=== PATIENT | female | born 1985 | race Two or more races ===

== ENCOUNTER 2018-01-20 12:33 | Inpatient (IN) | payer OTHER ==
[2018-01-20] MEDS ORDERED: ACETAMINOPHEN 1000 MG/100 ML VIAL (NON FORMULARY) IVPB ONE (13:34)
[2018-01-20] MEDS ORDERED: ACETAMINOPHEN INJECTION 100 ML IVPB ONE (13:37)
--- NOTE | 2018-01-20 14:02 | PDOC ---
History of Present Illness <Ethan Canas - Last Filed: 01/20/18 17:44> - History of Present Illness Initial Comments: 01/20/18 14:34 "The patient is a 32 year old female, with a significant past medical history of migraines, rheumatoid arthritis, fibromyalgia, liposuction on January 04, who presents to the emergency department complaining of diffuse abdominal pain for approx 16 days. The patient reports diffuse abdominal pain since her liposuction surgery on January 04. She states that the pain is in the abdominal wall. She also reports that the skin feels very swollen The patient reports she notified her surgeon Dr. Chamberlain 2 days after the surgery and was seen in the office four days. At that time they found a hematoma that was drained. Pt was also given a course of Levaquin, which she completed. Pt denies any F/C. Denies bleeding or drainage from any of the surgical sites. The patient reports taking 800 mg of Motrin for the abdominal pain with minimal relief. She denies recent fevers, chills, headache or dizziness. She denies recent nausea, vomit, or diarrhea. She denies recent dysuria, frequency, urgency or hematuria. She denies recent chest pain or shortness of breath. Allergies: Multiple allergies. See nursing notes. Past surgical history: . Liposuction 360 surgery on 01/04/18. Dilation and curettage. Social history: Nonsmoker. Primary Care Physician: Dr. Kuo Surgeon: Dr. Chamberlain " <Robert Arias - Last Filed: 01/20/18 18:13> - General Chief Complaint: Lightheaded Stated Complaint: DIZZINESS Time Seen by Provider: 01/20/18 12:44 Past History <Ethan Canas - Last Filed: 01/20/18 17:44> - Past Medical History COPD: No Other medical history: R.A , FIBROMYALGIA, MIGRAINES - Surgical History Abdominal Surgery: Yes (LIPO SUCTION) - Suicide/Smoking/Psychosocial Hx Smoking History: Never smoked Information on smoking cessation initiated: No Hx Alcohol Use: No Drug/Substance Use Hx: No Substance Use Type: None <Robert Arias - Last Filed: 01/20/18 18:13> - Past Medical History Allergies/Adverse Reactions: Allergies Allergy/AdvReac Type Severity Reaction Status Date / Time clindamycin Allergy Verified 01/20/18 12:59 codeine Allergy Verified 01/20/18 12:59 egg Allergy Verified 01/20/18 12:59 oxycodone Allergy Verified 01/20/18 12:59 Penicillins Allergy Verified 01/20/18 12:59 pineapple Allergy Verified 01/20/18 12:59 vancomycin Allergy Verified 01/20/18 12:59 Home Medications: Ambulatory Orders NK [No Known Home Medication] 01/20/18 Review of Systems - Review of Systems Comments:: 01/20/18 14:41 "GENERAL/CONSTITUTIONAL: No fever or chills. No weakness. HEAD, EYES, EARS, NOSE AND THROAT: No change in vision. No ear pain or discharge. No sore throat. CARDIOVASCULAR: No chest pain or shortness of breath. RESPIRATORY: No cough, wheezing, or hemoptysis. GASTROINTESTINAL: (+) Abdominal pain and swelling. (+) Diffuse abdominal pain. No nausea, vomiting, diarrhea. GENITOURINARY: No dysuria, frequency, or change in urination. MUSCULOSKELETAL: No joint or muscle swelling or pain. No neck or back pain. SKIN: No rash NEUROLOGIC: No headache, loss of consciousness, or change in strength/sensation. ENDOCRINE: No increased thirst. No abnormal weight change. HEMATOLOGIC/LYMPHATIC: No anemia, easy bleeding, or history of blood clots. ALLERGIC/IMMUNOLOGIC: No hives or skin allergy. " <Robert Arias - Last Filed: 01/20/18 18:13> *Physical Exam - Vital Signs Last Vital Signs Temp Pulse Resp BP Pulse Ox 98.7 F 85 18 138/85 99 01/20/18 12:38 01/20/18 12:38 01/20/18 12:38 01/20/18 12:38 01/20/18 13:03 <Ethan Canas - Last Filed: 01/20/18 17:44> - Vital Signs Last Vital Signs Temp Pulse Resp BP Pulse Ox 98.7 F 85 18 138/85 99 01/20/18 12:38 01/20/18 12:38 01/20/18 12:38 01/20/18 12:38 01/20/18 13:03 - Physical Exam Comments: 01/20/18 14:09 "GENERAL: Awake, alert, and fully oriented, in no acute distress HEAD: No signs of trauma EYES: PERRLA, EOMI, sclera anicteric, conjunctiva clear ENT: Auricles normal inspection, hearing grossly normal, nares patent, oropharynx clear without exudates. Moist mucosa NECK: Nontender, no stepoffs, Normal ROM, supple, no lymphadenopathy, JVD, or masses LUNGS: Breath sounds equal, clear to auscultation bilaterally. No wheezes, and no crackles HEART: Regular rate and rhythm, normal S1 and S2, no murmurs, rubs or gallops ABDOMEN: +induration and tenderness along entire anterior abdominal wall, no drainage, no erythema, no abdominal distention EXTREMITIES: Normal range of motion, no edema. No clubbing or cyanosis. No cords, erythema, or tenderness NEUROLOGICAL: Cranial nerves II through XII intact. 5/5 strength and sensation in all extremities, Normal speech, normal gait, normal cerebellar function SKIN: Warm, Dry, normal turgor, no rashes or lesions noted. " <Ou,Robert - Last Filed: 01/20/18 18:13> ED Treatment Course - LABORATORY CBC & Chemistry Diagram: 01/20/18 13:50 01/20/18 13:50 - ADDITIONAL ORDERS Additional order review: Laboratory Results 01/20/18 13:50 PT with INR 12.20 H INR 1.08 PTT (Actin FS) 28.7 01/20/18 13:50 RBC 4.66 MCV 81.2 MCHC 32.4 RDW 14.6 MPV 7.2 L Neutrophils % 62.2 Lymphocytes % 29.3 Monocytes % 7.4 Eosinophils % 0.4 Basophils % 0.7 - RADIOLOGY Radiograph Interpretation: 01/20/18 17:12 EXAM#: TYPE/EXAM: RESULT: [id number] CT/ABDOMEN PELVIS CT WITH CONTR Abdomen and pelvis CT (with intravenous contrast) Clinical information: abdominal pain, status post liposuction, evaluate for abscess Multiplanar imaging was performed following the intravenous administration of nonionic contrast. As requested oral contrast was not administered. No prior imaging studies are available at this facility for direct comparison. An approximately 3 x 2.4 x 1.4 cm nonspecific subcutaneous fluid collection is noted along the upper anterior pelvic wall in a central/slightly right paramedian position. A 4.5 x 2 x 1 cm rim enhancing nonspecific subcutaneous fluid collection is seen along the right lower anterior pelvis. A 4 x 3 x 0.7 cm rim-enhancing subcutaneous fluid collection is visualized along the left lower anterior pelvis. A 7 x 4 x 1.3 cm nonspecific subcutaneous fluid collection is noted laterally at the level of the left mid to lower abdomen. Concentric subcutaneous thickening is seen at the level of the abdomen and ventrally at the level of the pelvis which may be postsurgical and/or inflammatory/infectious in nature. Correlate clinically. No intra-abdominal abscess is visualized. A very small amount of free fluid is noted within the pelvic cul-de-sac. No evidence of pneumoperitoneum or bowel obstruction. Submitted exam coverage does not fully include the right hepatic dome. The visualized liver, spleen, pancreas, gallbladder and adrenal glands demonstrate no discrete pathology. There is no aortic aneurysm. The appendix appears unremarkable. No obvious lymphadenopathy is identified. There is mild to moderate nonspecific endometrial thickening. IMPRESSION: Multiple nonspecific subcutaneous fluid collections are noted as discussed above which may be on a postsurgical basis and/or representing abscesses. Correlate clinically. No definite intra-abdominal fluid collection is noted. Mild to moderate nonspecific endometrial thickening is seen. Correlate with menstrual cycle phase and with sonography, nonemergent unless otherwise clinically indicated. Reported By: David Biggs MD - Medications Given in the ED: ED Medications Discontinued Medications Generic Name Dose Route Start Last Admin Trade Name Freq PRN Reason Stop Dose Admin Acetaminophen 1,000 mg 01/20/18 13:34 01/20/18 13:40 Ofirmev Injection - IVPB 01/20/18 13:35 1,000 mg ONCE ONE Administration <Ethan Canas - Last Filed: 01/20/18 17:44> - LABORATORY CBC & Chemistry Diagram: 01/20/18 13:50 01/20/18 13:50 - RADIOLOGY Radiology Studies Ordered: Category Date Time Status ABDOMEN & PELVIS CT WITH CONTR [CT] Stat CT Scan 01/20/18 13:33 Ordered <Robert Arias - Last Filed: 01/20/18 18:13> Medical Decision Making - Medical Decision Making 01/20/18 17:[address] Dos Santos at 5:20 pm. Pending call back. Second call placed to Dr. Dos Santos at 5:40 pm. Case discussed. <Ethan Canas - Last Filed: 01/20/18 17:44> - Medical Decision Making 01/20/18 14:04 32 F with abdominal pain s/p liposuction 01/04. Exam notable for significant induration of the skin along entire abdominal wall - questionable whether this is related to the procedure or cellulitis/abscess. - Labs, cultures - CTAP w/ IV contrast - IVF, pain control 01/20/18 18:02 CT with multiple fluid collections - unclear whether normal post-op vs abscesses Spoke with Dr. Vega, who agrees with plan to start empiric abx and admit to obs. Dr. Vega to evaluate in AM. 01/20/18 18:13 Pt started on bactrim IV for MRSA coverage (allergic to vanc, clinda, penicillins) Pt admitted to hospitalist. <Robert Arias - Last Filed: 01/20/18 18:13> *DC/Admit/Observation/Transfer - Attestations Scribe Attestion: 01/20/18 14:47 Documentation prepared by Ethan Canas, acting as special forces medical sergeant for Robert Arias MD. <Ethan Canas - Last Filed: 01/20/18 17:44> - Discharge Dispostion Admit: Yes - Attestations Physician Attestion: 01/20/18 18:13 I, Dr. Robert Arias MD, attest that this document has been prepared under my direction and personally reviewed by me in its entirety. I further attest, that it accurately reflects all work, treatment, procedures and medical decision -making performed by me. <Robert Arias - Last Filed: 01/20/18 18:13> Diagnosis at time of Disposition: Postoperative wound abscess - Referrals Referrals: Shawn Silva MD [Primary Care Provider] - - Patient Instructions - Post Discharge Activity
[2018-01-20 14:03] LABS: BASO % 0.7 % (0-2.0); EOS % 0.4 % (0-4.5); HEMATOCRIT 37.8 % (32.4-45.2); HEMOGLOBIN 12.3 GM/dL (10.7-15.3); LYMPH % 29.3 % (8-40); MCH 26.3 pg (25.7-33.7); MCHC 32.4 g/dl (32.0-36.0); MEAN CELL VOLUME 81.2 fl (80-96); MEAN PLT VOLUME 7.2 fl (7.5-11.1); MONO % 7.4 % (3.8-10.2); NEUT % 62.2 % (42.8-82.8); PLATELET COUNT 393 K/MM3 (134-434); RBC 4.66 M/mm3 (3.60-5.2); RDW 14.6 % (11.6-15.6); WHITE BLOOD COUNT 6.2 K/mm3 (4.0-10.0)
[2018-01-20 14:19] LABS: INR 1.08 (0.82-1.09); PROTHROMBIN TIME (PATIENT) 12.2 SEC (9.98-11.88)
[2018-01-20 14:22] LABS: ACTIVATED PTT 28.7 SECONDS (26.9-34.4)
[2018-01-20 14:32] LABS: ALBUMIN 3.7 g/dl (3.4-5.0); ANION GAP 9 (8-16); BLOOD UREA NITROGEN 10 mg/dL (7-18); CALCIUM 9.1 mg/dL (8.5-10.1); CHLORIDE 101 mmol/L (98-107); CO2 30 mmol/L (21-32); CREATININE 0.7 mg/dL (0.55-1.02); GLUCOSE,RANDOM 87 mg/dL (74-106); POTASSIUM 4.2 mmol/L (3.5-5.1); SGOT/AST 16 U/L (15-37); SGPT/ALT 12 U/L (12-78); SODIUM 140 mmol/L (136-145)
[2018-01-20 14:34] LABS: ALK PHOS 50 U/L (45-117); BILIRUBIN,TOTAL 0.4 mg/dL (0.2-1.0); TOT PROT 7.4 g/dl (6.4-8.2)
[2018-01-20] MEDS ORDERED: morphine CARPU-JECT 4 MG/1 ML DISP.SYRIN IVPUSH ONE (17:14)
[2018-01-20] MEDS ORDERED: morphine SULFATE 4 MG/ML VIAL ONE (17:19)
[2018-01-20] MEDS ORDERED: SULFAMETHOXAZOLE 80 MG/TRIMETHOPRIM 16 MG/ML VIAL IVPB ONE (17:58)
--- NOTE | 2018-01-20 18:04 | CONSULT ---
Consult Consult Specialty:: general surgery Referred by:: licha smith Reason for Consultation:: post op wound infection - History of Present Illness Chief Complaint: post op liposuction wound infection History of Present Illness: 32 yo female PMH migraine headaches, rheumatoid arthritis, fibromyalgia, liposuction/ lipoplasty on 01/04/2018, presents to the emergency department complaining of diffuse abdominal pain since surgery. The patient reports the pain is superfical and diffuse on the abdominal wall and flanks where she had her liposuction. She states that the pain is in the abdominal wall. She also reports that the skin feels very swollen The patient reports she notified her surgeon Dr. Chamberlain 2 days after the surgery and was seen in the office four days. At that time they found a hematoma that was drained. Pt was also given a course of Levaquin, which she completed. Pt denies any F/C. Denies bleeding or drainage from any of the surgical sites. The patient reports taking 800 mg of Motrin for the abdominal pain with minimal relief. Not inocencia any abdominal binder. We were asked to assess. - History Source History Provided By: Patient, Medical Record Limitations to Obtaining History: No Limitations - Past Medical History Rheumatology: Yes: Fibromyalgia, Rheumatoid Arthritis - Alcohol/Substance Use Hx Alcohol Use: No - Smoking History Smoking history: Never smoked - Social History Place of : [facility] History of Recent Travel: No Home Medications - Allergies Allergies/Adverse Reactions: Allergies Allergy/AdvReac Type Severity Reaction Status Date / Time clindamycin Allergy Verified 01/20/18 12:59 codeine Allergy Verified 01/20/18 12:59 egg Allergy Verified 01/20/18 12:59 oxycodone Allergy Verified 01/20/18 12:59 Penicillins Allergy Verified 01/20/18 12:59 pineapple Allergy Verified 01/20/18 12:59 vancomycin Allergy Verified 01/20/18 12:59 - Home Medications Home Medications: Ambulatory Orders NK [No Known Home Medication] 01/20/18 Review of Systems - Review of Systems Constitutional: denies: Chills, Fever Eyes: denies: Blurred Vision, Recent Change in Vision HENT: denies: Difficult Swallowing, Throat Pain Neck: denies: Pain on Movement, Tenderness Cardiovascular: denies: Chest Pain, Palpitations Respiratory: denies: Cough, SOB Gastrointestinal: denies: Constipation, Diarrhea Genitourinary: denies: Discharge, Dysuria Breasts: reports: No Symptoms Reported. denies: Pain Musculoskeletal: denies: Muscle Pain, Muscle Weakness Integumentary: reports: Bruising, Incision Neurological: reports: Headache Endocrine: denies: Unexplained Weight Gain, Unexplained Weight Loss Hematology/Lymphatic: denies: Easily Bruised, Excessive Bleeding Psychiatric: denies: Anxiety, Depression Physical Exam Vital Signs: Vital Signs Temperature 97.9 F 01/20/18 17:12 Pulse Rate 72 01/20/18 17:12 Respiratory Rate 20 01/20/18 17:12 Blood Pressure 133/79 01/20/18 17:12 O2 Sat by Pulse Oximetry (%) 100 01/20/18 17:12 Vital Signs Period Temp Pulse Resp BP Sys/Frazier Pulse Ox Last 24 Hr 97.9 F-98.7 F 72-85 18-20 133-138/79-85 99-100 Constitutional: Yes: No Distress, Anxious Eyes: Yes: Conjunctiva Clear, EOM Intact HENT: Yes: Atraumatic, Normocephalic Neck: Yes: Supple, Trachea Midline Cardiovascular: Yes: Regular Rate and Rhythm, S1, S2. No: Murmur Respiratory: Yes: Regular, CTA Bilaterally Gastrointestinal: Yes: Normal Bowel Sounds, Soft, Tenderness (bilateral flanks and lower abdomen) ...Rectal Exam: Yes: Deferred Renal/: No: CVA Tenderness - Left, CVA Tenderness - Right Extremities: No: Cool, Cyanosis Integumentary: Yes: Bruising, Incision, Petechiae. No: Erythema, Jaundice Wound/Incision: Yes: Clean/Dry, Well Approximated, Open to air Neurological: Yes: Alert, Oriented Psychiatric: Yes: Alert, Oriented Labs: CBC, BMP 01/20/18 13:50 01/20/18 13:50 Imaging - Results Cat Scan: Report Reviewed, Image Reviewed (multiple post operative flanks and abdominal collections) Problem List - Problems (1) Postoperative wound abscess Assessment/Plan: 32 yo s/p lipoplasty/ liposuction bilateral flanks and lower abdomen 01/04/[address] Chamberlain? No acute general surgical intervention is indicated. Urgent follow up with Dr. Chamberlain Empiric IV antibiotics Adequate analgesia Thank you for the opportunity to participate in the care of this patient. Code(s): T81.4XXA - INFECTION FOLLOWING A PROCEDURE, INITIAL ENCOUNTER (2) Seroma after procedure Code(s): [id number] - (3) Localized adiposity of flank Code(s): E65 - LOCALIZED ADIPOSITY (4) Localized adiposity of abdomen Code(s): E65 - LOCALIZED ADIPOSITY
[2018-01-20] MEDS ORDERED: SULFAMETHOXAZOLE/TRIMETHOPRIM 300 MG in DEXTROSE 5%-WATER - 500 ML IVPB ONE (18:30)
--- NOTE | 2018-01-20 19:23 | HP ---
CHIEF COMPLAINT: Progressive abdominal pain/induration s/p liposuction PCP: Dr. Shawn Silva HISTORY OF PRESENT ILLNESS: 32 yo woman w/ pmh of RA, migraines, fibromyalgia who presents with persistent abdominal pain over the last two weeks since receiving liposuction on 01/04 in . Pt states she received liposuction on 01/04, with a post-procedural course complicated by an abdominal wall hematoma on L lateral abdomen, which was drained by the performing surgeon Dr. Mary Chamberlain 4 days after the procedure. Pt was placed on PO levaquin and finished her abx course, prescribed 800mg motrin for pain, with moderate relief of pain. Since then, pt endorses worsening diffuse abdominal pain, increasing induration of the abdominal wall, now spreading to BL back pain over last few days. Pt endorses occasional chills and diaphoresis at night and endorses general malaise, lightheadness and unsteady gait. She was seen by her PMD who urged her to come to the ED for suspected sepsis. Pt denies fevers, GUTIERREZ, vision changes, sinus pain/congestion, throat pain, cough, SOB, peripheral edema, neuro symptoms. She endorses one episode of chest tightness/anxiety two days ago, which has since resolved. She denies diarrhea/constipation, dysuria, frequency. Pt states she has been unable to contact surgeon since her hematoma drainage. ER course was notable for: (1)Afebrile, no WBC count (2)CT Ab/Pelvis as noted below (3)Gen surgery consult Recent Travel: No PAST MEDICAL HISTORY: RA Migraines Fibromyalgia PAST SURGICAL HISTORY: Liposuction on 01/04 Social History: Smoking: No Alcohol: Social Drugs: No Family History: noncontributory Allergies clindamycin Allergy (Verified 01/20/18 12:59) codeine Allergy (Verified 01/20/18 12:59) egg Allergy (Verified 01/20/18 12:59) oxycodone Allergy (Verified 01/20/18 12:59) Penicillins Allergy (Verified 01/20/18 12:59) pineapple Allergy (Verified 01/20/18 12:59) vancomycin Allergy (Verified 01/20/18 12:59) HOME MEDICATIONS: Home Medications Medication Instructions Recorded NK [No Known Home Medication] 01/20/18 REVIEW OF SYSTEMS CONSTITUTIONAL: malaise, chills, diaphoresis Absent: fever, generalized weakness, loss of appetite, weight change HEENT: Absent: rhinorrhea, nasal congestion, throat pain, throat swelling, difficulty swallowing, mouth swelling, ear pain, eye pain, visual changes CARDIOVASCULAR: Absent: chest pain, syncope, palpitations, irregular heart rate, lightheadedness , peripheral edema RESPIRATORY: Absent: cough, shortness of breath, dyspnea with exertion, orthopnea, wheezing, stridor, hemoptysis GASTROINTESTINAL: abdominal pain, abdominal distension/induration Absent: nausea, vomiting, diarrhea, constipation, melena, hematochezia GENITOURINARY: Absent: dysuria, frequency, urgency, hesitancy, hematuria, flank pain, genital pain MUSCULOSKELETAL: back pain, Absent: myalgia, arthralgia, joint swelling, neck pain SKIN: Abscess on L abdominal wall Absent: rash, itching, pallor HEMATOLOGIC/IMMUNOLOGIC: Absent: easy bleeding, easy bruising, lymphadenopathy, frequent infections ENDOCRINE: Absent: unexplained weight gain, unexplained weight loss, heat intolerance, cold intolerance NEUROLOGIC: Absent: headache, focal weakness or paresthesias, dizziness, unsteady gait, seizure, mental status changes, bladder or bowel incontinence PHYSICAL EXAMINATION Vital Signs - 24 hr 01/20/18 01/20/18 01/20/18 12:38 13:03 17:12 Temperature 98.7 F 97.9 F Pulse Rate 85 Pulse Rate [ 72 Apical] Respiratory 18 20 Rate Blood Pressure 138/85 Blood Pressure 133/79 [Right Arm] O2 Sat by Pulse 100 99 100 Oximetry (%) GENERAL: Young woman, Awake, alert, and fully oriented, in mild distress HEAD: Normal with no signs of trauma. EYES: Pupils equal, round and reactive to light, extraocular movements intact, sclera anicteric, conjunctiva clear. No lid lag. EARS, NOSE, THROAT: Ears normal, nares patent, oropharynx clear without exudates. Moist mucous membranes. NECK: Normal range of motion, supple without lymphadenopathy, JVD, or masses. LUNGS: Breath sounds equal, clear to auscultation bilaterally. No wheezes, and no crackles. No accessory muscle use. HEART: Tachy, regular rate and rhythm, normal S1 and S2 without murmur, rub or gallop. ABDOMEN: Diffuse induration of abdominal wall, increased abdominal tone. Tender to palpation in all 4 quadrants. L lateral abdominal scarred, healed abscess with no noted drainage or fluctuance. no rebound, no masses. No hepatomegaly or splenomegaly. MUSCULOSKELETAL: BL CVA tenderness. Normal range of motion at all joints. No bony deformities or tenderness. UPPER EXTREMITIES: 2+ pulses, warm, well-perfused. No cyanosis. No clubbing. No peripheral edema. LOWER EXTREMITIES: 2+ pulses, warm, well-perfused. No calf tenderness. No peripheral edema. NEUROLOGICAL: Cranial nerves II-XII intact. Normal speech. Normal gait. PSYCHIATRIC: Cooperative. Good eye contact. Tearful Laboratory Results - last 24 hr CBC, BMP 01/20/18 13:50 01/20/18 13:50 01/20/18 01/20/18 01/20/18 13:20 13:50 13:50 WBC 6.2 RBC 4.66 Hgb 12.3 Hct 37.8 MCV 81.2 MCH 26.3 MCHC 32.4 RDW 14.6 Plt Count 393 MPV 7.2 L Neutrophils % 62.2 Lymphocytes % 29.3 Monocytes % 7.4 Eosinophils % 0.4 Basophils % 0.7 PT with INR 12.20 H INR 1.08 PTT (Actin FS) 28.7 Sodium Potassium Chloride Carbon Dioxide Anion Gap BUN Creatinine Creat Clearance w eGFR Random Glucose Calcium Total Bilirubin AST ALT Alkaline Phosphatase Total Protein Albumin Serum , Qual Negative Urine HCG, Qual 01/20/18 01/20/18 13:50 14:00 WBC RBC Hgb Hct MCV MCH MCHC RDW Plt Count MPV Neutrophils % Lymphocytes % Monocytes % Eosinophils % Basophils % PT with INR INR PTT (Actin FS) Sodium 140 Potassium 4.2 Chloride 101 Carbon Dioxide 30 Anion Gap 9 BUN 10 Creatinine 0.7 Creat Clearance w eGFR > 60 Random Glucose 87 Calcium 9.1 Total Bilirubin 0.4 AST 16 ALT 12 Alkaline Phosphatase 50 Total Protein 7.4 Albumin 3.7 Serum , Qual Urine HCG, Qual Negative Micro pending Abdomen/pelvis CT with contrast 01/20 - IMPRESSION: Multiple nonspecific subcutaneous fluid collections are noted as discussed above which may be on a postsurgical basis and/or representing abscesses. Correlate clinically. No definite intra-abdominal fluid collection is noted. Mild to moderate nonspecific endometrial thickening is seen. Correlate with menstrual cycle phase and with sonography, nonemergent unless otherwise clinically indicated. ASSESSMENT/PLAN: 32 yo woman w/ pmh of RA, migraines, fibromyalgia who presents with persistent abdominal pain over the last two weeks since receiving liposuction on 01/04 in , now with CT abdomen findings suspicious for diffuse subcutaneous fluid collections and possible intraabdominal abscesses. #Diffuse abdominal subcutaneous fluid collections s/p liposuction - no wbc, fever; CT pelvis/abdomen as noted above - f/u blood cultures - ID consulted - ESR/CRP - tylenol IV, Morphine for pain control - Zofran for N/V - Surgical consult - Dr. Dos Santos to see in AM - IVFs - Collateral from original surgeon in AM - NPO PPX HSQ FEN LR 75cc Normal lytes NPO Plan discussed with attending, Dr. Mike Meneses, PGY1 Visit type - Emergency Visit Emergency Visit: Yes ED Registration Date: 01/20/18 Care time: The patient presented to the Emergency Department on the above date and was hospitalized for further evaluation of their emergent condition. - New Patient This patient is new to me today: Yes Date on this admission: 01/20/18 - Critical Care Critical Care patient: No Hospitalist Screening - Colonoscopy Questionnaire Colonoscopy Questionnaire: Colonoscopy Questionnaire - Patient: 50 - 75 years old and never had a screening colonoscopy: Unknown History of colon or rectal polyps, or CA: Unknown History of IBD, Crohn's disease or UC: Unknown History of abdominal radiation therapy as a child: Unknown - Relative: 1 with colon or rectal CA, or polyps at age 60 or younger: Unknown Colon or rectal CA diagnosed at age 45 or younger: Unknown Multiple relatives with colon or rectal CA: Unknown - Outcome: Screening Result: Negative Screen
--- NOTE | 2018-01-20 21:43 | PN ---
Teaching Attending Note Name of Resident: Wes Meneses ATTENDING PHYSICIAN STATEMENT I saw and evaluated the patient. I reviewed the resident's note and discussed the case with the resident. I agree with the resident's findings and plan as documented. SUBJECTIVE: 32F complains of abdominal pain diffusely ever since liposuction 01/04/18. her surgeon did a hematoma/abscess drainage 4 days post op and she took 10 days levaquin OBJECTIVE: Gen: NAD Abd: diffuse induration throughout anterior abdomen and tranvelling to around both flanks to the back. mild TTP in all areas. no overlyring erythema on skin changes. There is a small I+D site in LLQ area. CTAP:multiple fluid colelction unclear etiology, may represent abscesses. ASSESSMENT AND PLAN: 32F s/p liposuction about 2 weeks ago with diffusely indurated abdomen, this maybe changes from post op edema, an allergic reaction to some agent used during a procedure, or an infection. No systemic findings of infection at this time. start empiric abx surgical eval in AM IVF pain control IV tylenol and morphine ID eval send inflammartory markers may consider steroids to treat a diffuse inflammatory process.
[2018-01-20] MEDS ORDERED: ACETAMINOPHEN 1000 MG/100 ML VIAL (NON FORMULARY) IVPB PRN (22:08)
[2018-01-20] MEDS: HEPARIN NA (PORCINE) 5,000 UNITS/ML 1ML VIAL SQ SCH (22:36)
[2018-01-20] MEDS ORDERED: HEPARIN NA (PORCINE) 5,000 UNITS/ML 1ML VIAL ONE (22:39)
[2018-01-20] MEDS ORDERED: SODIUM CHLORIDE 1,000 ML IV SCH (23:00)
[2018-01-20] MEDS: LACTATED RINGERS SOLUTION 1,000 ML/1,000 ML INFUS.BAG IV SCH (23:47)
[2018-01-20] MEDS: morphine SULFATE 4 MG/ML VIAL IVPUSH PRN (23:48)
[2018-01-21 01:48] VITALS: BMI 25.4
--- NOTE | 2018-01-21 01:58 | PN ---
Progress Note, Physician Chief Complaint: pain and possible infected operative site History of Present Illness: 32 yo female s/p liposuction/ lipoplasty on 01/04/[address] Chamberlain presented to the emergency department complaining of diffuse abdominal pain since surgery. She was evaluated to have a possible surgical site infection (left flank abscess /hematoma) which was drained a few days ago by Dr. Chamberlain. Afebrile now. she is upset with her post-op care. There is no other acute event overnight. - Current Medication List Current Medications: Active Medications Acetaminophen (Ofirmev Injection -) 1,000 mg IVPB Q6H PRN PRN Reason: PAIN LEVEL 1-5 Heparin Sodium (Porcine) (Heparin -) 5,000 unit SQ TID [facility] Last Admin: 01/20/18 22:36 Dose: 5,000 unit Lactated Ringer's (Lactated Ringers Solution) 1,000 ml in 1,000 mls @ 75 mls/ hr IV ASDIR [facility] Last Admin: 01/20/18 23:47 Dose: 75 mls/hr Morphine Sulfate (Morphine Sulfate) 2 mg IVPUSH Q4H PRN PRN Reason: PAIN LEVEL 6-10 Last Admin: 01/20/18 23:48 Dose: 2 mg Ondansetron HCl (Zofran Injection) 4 mg IVPUSH Q6H PRN PRN Reason: NAUSEA Trimethoprim/Sulfamethoxazole (Bactrim Injection -) 300 mg IVPB ONCE ONE PRN Reason: Protocol Stop: 01/21/18 07:01 - Objective Vital Signs: Vital Signs Temperature 98.0 F 01/20/18 23:45 Pulse Rate 86 01/20/18 23:45 Respiratory Rate 16 01/20/18 23:45 Blood Pressure 124/73 01/20/18 23:45 O2 Sat by Pulse Oximetry (%) 99 01/20/18 23:45 Vital Signs Period Temp Pulse Resp BP Sys/Frazier Pulse Ox Last 24 Hr 97.9 F-98.7 F 72-86 16-20 124-138/72-85 99-100 Constitutional: Yes: Well Nourished, No Distress, Calm Eyes: Yes: Conjunctiva Clear, EOM Intact HENT: Yes: Atraumatic, Normocephalic Neck: Yes: Supple, Trachea Midline Cardiovascular: Yes: Regular Rate and Rhythm, S1, S2 Respiratory: Yes: Regular, CTA Bilaterally Gastrointestinal: Yes: Normal Bowel Sounds, Soft, Other (left flank wound) Wound/Incision: Yes: Draining (minimal drainge left flank punctum) Labs: CBC, BMP 01/20/18 13:50 01/20/18 13:50 INR, PTT INR 1.08 (0.82-1.09) 01/20/18 13:50 Problem List - Problems (1) Postoperative wound abscess Assessment/Plan: 32 yo s/p lipoplasty/ liposuction bilateral flanks and lower abdomen 01/04/[address] Chamberlain? No acute general surgical intervention is indicated. Urgent follow up with Dr. Chamberlain plastic surgery follow-up appreciated Empiric IV antibiotics Adequate analgesia Thank you for the opportunity to participate in the care of this patient. Code(s): T81.4XXA - INFECTION FOLLOWING A PROCEDURE, INITIAL ENCOUNTER (2) Seroma after procedure Code(s): WBY5563 - (3) Localized adiposity of flank Code(s): E65 - LOCALIZED ADIPOSITY (4) Localized adiposity of abdomen Code(s): E65 - LOCALIZED ADIPOSITY (5) Migraines Code(s): G43.909 - MIGRAINE, UNSP, NOT INTRACTABLE, WITHOUT STATUS MIGRAINOSUS (6) Fibromyalgia Code(s): M79.7 - FIBROMYALGIA
[2018-01-21] MEDS: morphine SULFATE 4 MG/ML VIAL IVPUSH PRN ×2 (03:42→11:58)
[2018-01-21] MEDS: HEPARIN NA (PORCINE) 5,000 UNITS/ML 1ML VIAL SQ SCH ×3 (06:17→21:50)
[2018-01-21] MEDS: ACETAMINOPHEN 325 MG TABLET (FP) PO PRN ×2 (06:19→11:58)
[2018-01-21] MEDS ORDERED: SULFAMETHOXAZOLE 80 MG/TRIMETHOPRIM 16 MG/ML VIAL IVPB ONE (07:00)
[2018-01-21 08:02] LABS: BASO % 0.4 % (0-2.0); EOS % 0.6 % (0-4.5); HEMATOCRIT 32.9 % (32.4-45.2); HEMOGLOBIN 10.7 GM/dL (10.7-15.3); LYMPH % 37.7 % (8-40); MCH 26.3 pg (25.7-33.7); MCHC 32.5 g/dl (32.0-36.0); MEAN CELL VOLUME 80.8 fl (80-96); MEAN PLT VOLUME 6.9 fl (7.5-11.1); MONO % 8.5 % (3.8-10.2); NEUT % 52.8 % (42.8-82.8); PLATELET COUNT 322 K/MM3 (134-434); RBC 4.07 M/mm3 (3.60-5.2); RDW 14.3 % (11.6-15.6); WHITE BLOOD COUNT 5.6 K/mm3 (4.0-10.0)
[2018-01-21 08:22] LABS: INR 1.08 (0.82-1.09); PROTHROMBIN TIME (PATIENT) 12.2 SEC (9.98-11.88)
[2018-01-21 08:44] LABS: CHLORIDE 103 mmol/L (98-107); POTASSIUM 3.2 mmol/L (3.5-5.1); SODIUM 138 mmol/L (136-145)
[2018-01-21 08:54] LABS: ALK PHOS 43 U/L (45-117); ANION GAP 8 (8-16); BILIRUBIN,TOTAL 0.1 mg/dL (0.2-1.0); BLOOD UREA NITROGEN 9 mg/dL (7-18); CALCIUM 8.2 mg/dL (8.5-10.1); CO2 27 mmol/L (21-32); CREATININE 0.9 mg/dL (0.55-1.02); GLUCOSE,RANDOM 139 mg/dL (74-106); SGOT/AST 10 U/L (15-37); SGPT/ALT 6 U/L (12-78); TOT PROT 5.9 g/dl (6.4-8.2)
--- NOTE | 2018-01-21 09:39 | PN ---
Progress Note (short form) - Note Progress Note: ID consult dictated imp/reccd worsening abdominal pain and discomfort after liposuction 3 multiple antibiotic allergies vancomycin- rash and itching clindamycin rash and itching penicillin- rash and swelling no fevers or chills she had ct scan done in ED showing multiple collections-abscesses versus postop collections she has a draining area on her left flank- blood tinged serous fluid she received two doses of bactrim the second this am noted nausea after the bactrim was given two courses of levaquin- one immediately after surgery and one 5 days later- each for 5 days wound infection/multiple subcutaneous collections POD #17 s/p liposuction awaiting plastic surgery consultation wound culture sent of drainage from her flank collection blood cultures pending will start tygacil given her multiple allergies Problem List - Problems (1) Abscess or cellulitis of flank Code(s): LML7164 - (2) Postoperative wound abscess Code(s): T81.4XXA - INFECTION FOLLOWING A PROCEDURE, INITIAL ENCOUNTER (3) Allergy to multiple antibiotics Code(s): Z88.1 - ALLERGY STATUS TO OTHER ANTIBIOTIC AGENTS STATUS
[2018-01-21] MEDS ORDERED: TIGECYCLINE 100 MG in DEXTROSE 5%-WATER - 100 ML IVPB ONE (09:42)
--- NOTE | 2018-01-21 10:38 | CONS ---
DATE OF CONSULTATION: DATE OF DICTATION: 01/21/2018 REQUESTED BY: The hospitalist service. HISTORY OF PRESENT ILLNESS: This is a 32-year-old woman. She underwent liposuction at an ambulatory facility, [facility], on January 04, 2018. On January 06 she started having pain with swelling at the site. She had been given Levaquin postsurgery which she took for 5 days. The pain and swelling persisted. She was seen on January 09 by her doctor, , who drained the hematoma from her left flank. She again was given another 5-day course of Levaquin. She was also advised to take some Motrin as needed. She reports that she has had worsening abdominal discomfort. She feels like she is getting very thick and her abdomen is getting bumpy. She has had increased induration. Last night she felt like she had some chills. She saw her PMD who urged her to come to the emergency room. She has a history of rheumatoid arthritis which she says is quiescent. She takes Lyrica and prednisone which she stopped 2 months ago in preparation for the liposuction. She still takes it p.r.n. and over the last 2 weeks she took 3 days of prednisone. She does not know the dosage. She has had no fevers or chills. After receiving the Bactrim this morning she had some nausea. She reports she felt dizzy last night which is also why she became scared and came to the hospital. PAST MEDICAL HISTORY: Notable for rheumatoid arthritis, fibromyalgia and migraines. She had a miscarriage and needed a D & C in October 2017 which was done at [facility]. SURGICAL HISTORY: Notable for the liposuction surgery done on January 04. She has had 1 in the past. She has a 5-year-old child. SOCIAL HISTORY: There is no history of cigarette, alcohol or substance use. 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 Her primary care doctor is in the [place]. She elected to come to [facility] because she did not wish to have her care at either [facility] or at [place]. FAMILY HISTORY: Noncontributory. ALLERGIES: She has multiple allergies, including CODEINE, EGG, OXYCODONE, PENICILLIN, PINEAPPLE, VANCOMYCIN and CLINDAMYCIN. She describes her VANCOMYCIN allergy as rash and itching, CLINDAMYCIN as rash and itching and PENICILLIN as rash and swelling. MEDICATIONS: At home currently have just included the Motrin and prednisone, dose of which is unknown which she takes p.r.n. REVIEW OF SYSTEMS: She reports that she has been having some chills. She has been feeling dizzy and overall uncomfortable. She is feeling a stiffness of her entire abdominal torso which she is finding very scary. She has drainage she notes from her left flank area. She has had no dysuria. She has had no diarrhea. She had no vomiting prior to this morning. PHYSICAL EXAMINATION:General: She is awake and alert. Vital Signs: Temperature is 98, she has had no fever, pulse of 80, blood pressure is 114/74, respiratory rate 16, she is saturating 99% on room air. HEENT: She is normocephalic. Her eyes are anicteric. Neck: Supple. Lungs: Clear to auscultation. Heart: Regular rate and rhythm. Abdomen: Notable for she has some lumpy induration and on the left flank she has an area where she has a superficial collection coming out of a small hole. It is bloody and has a slight odor to it. There is no naomi purulence. LABORATORIES: Notable for a white count of 6.2 on admission, 5.6 today. Her sedimentation rate is 19. Her BUN is 9 and creatinine is 0.8. LFTs are normal. CRP is 0.4 and her test is negative. Blood cultures are pending. CAT scan of the abdomen and pelvis was done in the emergency room that was notable for multiple nonspecific subcutaneous fluid collections which may be post surgical and/or representing abscesses. She had no intraabdominal collection. ASSESSMENT: In summary, this is a 32-year-old woman postop day number 17 status post abdominal liposuction with worsening abdominal pain and with possible abscess cellulitis of her flank in the setting of postoperative wound infection and multiple allergies to antibiotics. She received 2 doses of Bactrim, 1 last night and 1 this morning. As well, as an outpatient she has received Levaquin for about 10 days. RECOMMENDATIONS: Would suggest that we culture the wound which I did and send the drainage for culture. Plastic Surgery has been contacted and they will hopefully be in this afternoon to see her. Would start given her multiple allergies while awaiting further workup. This was all discussed with the patient who is aware that Plastics will be in later to see her. TAMELA SANDERS M.D. SOBEIDA/[id number]
--- NOTE | 2018-01-21 13:23 | PN ---
Progress Note (short form) - Note Progress Note: c/o GUTIERREZ with nausea and vomiting. started this AM after abx given. states they brought her food she was allergic to so she was unable to eat all day which she feels has contributed to GUTIERREZ. continues to have diffuse abdominal pain worse on palpation. drainage from left flank has persisted since he did aspiration on . at that time was only blood that came out and he started her on levaquin. since then pus and blood drainage with foul odor. denies Cp,SOB, fever, chills, blurred vision Current Medications Generic Name Dose Route Start Last Admin Trade Name Freq PRN Reason Stop Dose Admin Acetaminophen 650 mg 01/21/18 05:36 01/21/18 11:58 Tylenol - PO 650 mg Q4H PRN Administration PAIN LEVEL 1-5 Heparin Sodium (Porcine) 5,000 unit 01/20/18 22:15 01/21/18 06:17 Heparin - SQ 5,000 unit TID NARDA Administration Lactated Ringer's 1,000 ml in 1,000 mls @ 75 mls/hr 01/20/18 23:00 01/20/18 23:47 Lactated Ringers Solution IV 75 mls/hr ASDIR NARDA Administration Tigecycline 50 mg/ Dextrose 100 mls @ 100 mls/hr 01/21/18 22:00 IVPB BID NARDA Protocol Morphine Sulfate 2 mg 01/20/18 21:57 01/21/18 11:58 Morphine Sulfate IVPUSH 2 mg Q4H PRN Administration PAIN LEVEL 6-10 Ondansetron HCl 4 mg 01/20/18 22:10 Zofran Injection IVPUSH Q6H PRN NAUSEA Last Vital Signs Temp Pulse Resp BP Pulse Ox 98.3 F 77 18 122/76 98 01/21/18 10:00 01/21/18 10:00 01/21/18 10:00 01/21/18 10:00 01/21/18 10:00 General lethargic CV S1 s2 RRR no murmur/rub/gallop lungs CTA B/L no wheezing/rales/rhonchi Abdomen soft with firm nodular masses diffusely throughout the abdomen. diffusely tender. LLQ with drainage of brownish pus with palpation Extremities no pedal edema CBCD WBC 5.6 K/mm3 (4.0-10.0) 01/21/18 07:00 RBC 4.07 M/mm3 (3.60-5.2) 01/21/18 07:00 Hgb 10.7 GM/dL (10.7-15.3) D 01/21/18 07:00 Hct 32.9 % (32.4-45.2) 01/21/18 07:00 MCV 80.8 fl (80-96) 01/21/18 07:00 MCHC 32.5 g/dl (32.0-36.0) 01/21/18 07:00 RDW 14.3 % (11.6-15.6) 01/21/18 07:00 Plt Count 322 K/MM3 (134-434) 01/21/18 07:00 MPV 6.9 fl (7.5-11.1) L 01/21/18 07:00 CMP Sodium 138 mmol/L (136-145) 01/21/18 07:00 Potassium 3.2 mmol/L (3.5-5.1) L 01/21/18 07:00 Chloride 103 mmol/L (98-107) 01/21/18 07:00 Carbon Dioxide 27 mmol/L (21-32) 01/21/18 07:00 Anion Gap 8 (8-16) 01/21/18 07:00 BUN 9 mg/dL (7-18) 01/21/18 07:00 Creatinine 0.9 mg/dL (0.55-1.02) 01/21/18 07:00 Creat Clearance w eGFR > 60 (>60) 01/21/18 07:00 Calcium 8.2 mg/dL (8.5-10.1) L 01/21/18 07:00 Total Bilirubin 0.1 mg/dL (0.2-1.0) L D 01/21/18 07:00 AST 10 U/L (15-37) L 01/21/18 07:00 ALT 6 U/L (12-78) L 01/21/18 07:00 Alkaline Phosphatase 43 U/L (45-117) L 01/21/18 07:00 Total Protein 5.9 g/dl (6.4-8.2) L 01/21/18 07:00 Albumin 3.0 g/dl (3.4-5.0) L 01/21/18 07:00 Microbiology 01/21/18 09:30 Gram Stain - Final Abscess A/P 32yo F wtih PMH RA and migraines presenting to the ER with abdominal pain after liposuction performed on 01/04 and drainage of L flank abscess. recently completed levaquin for 5days x2. 1. Abdominal pain-multiple subcutaneous fluid collections seen on CT, one with superficial draining which she states was drained and given abx. will empirically treat for abscesses at this time. started on tigacil due to multiple allergies. WCx taken from leaking site. ID and plastics on board. pain and nausea control. 2. Migraines- likely exacerbated by not eating. tramadol as needed 3. Hypokalemia- will improve with oral intake 4. RA- no acute flare. takes prednisone as needed. last time was 3 days ago where she took it for 3 days 5. fibromyalgia- takes as needed. will hold at this time 6. DVT ppx- hep sq Visit type - Emergency Visit Emergency Visit: Yes ED Registration Date: 01/20/18 Care time: The patient presented to the Emergency Department on the above date and was hospitalized for further evaluation of their emergent condition. - New Patient This patient is new to me today: Yes Date on this admission: 01/21/18 - Critical Care Critical Care patient: No - Discharge Referral Referred to [facility] Med P.C.: No
[2018-01-21] MEDS ORDERED: POTASSIUM CHLORIDE ORAL LIQUID 20 MEQ/15 ML PO ONE (14:00)
[2018-01-21] MEDS: ONDANSETRON 4 MG/2 ML VIAL IVPUSH PRN ×2 (14:15→20:40)
[2018-01-21] MEDS ORDERED: traMADol HCL 50 MG TABLET PO PRN (14:32)
[2018-01-21] MEDS ORDERED: LIDOCAINE HCL 1%, 10 MG/ML (50 mL VIAL) SQ ONE (15:49)
--- NOTE | 2018-01-21 15:49 | CONSULT ---
Consult Consult Specialty:: Plastic Surgery - Past Medical History ...LMP: 01/09/18 ...: No Rheumatology: Yes: Fibromyalgia, Rheumatoid Arthritis - Alcohol/Substance Use Hx Alcohol Use: No - Smoking History Smoking history: Never smoked Have you smoked in the past 12 months: No - Social History History of Recent Travel: No Home Medications - Allergies Allergies/Adverse Reactions: Allergies Allergy/AdvReac Type Severity Reaction Status Date / Time clindamycin Allergy Verified 01/20/18 12:59 codeine Allergy Verified 01/20/18 12:59 egg Allergy Verified 01/20/18 12:59 oxycodone Allergy Verified 01/20/18 12:59 Penicillins Allergy Verified 01/20/18 12:59 pineapple Allergy Verified 01/20/18 12:59 vancomycin Allergy Verified 01/20/18 12:59 - Home Medications Home Medications: Ambulatory Orders Acetaminophen [Tylenol] 650 mg PO PRN 01/21/18 Lidocaine 5% Patch [Lidoderm -] 1 patch TD PRN PRN 01/21/18 Lyrica PO PRN 01/21/18 Prednisone PO PRN 01/21/18 Physical Exam Vital Signs: Vital Signs Temperature 98.3 F 01/21/18 10:00 Pulse Rate 77 01/21/18 10:00 Respiratory Rate 18 01/21/18 10:00 Blood Pressure 122/76 01/21/18 10:00 O2 Sat by Pulse Oximetry (%) 98 01/21/18 10:00 Labs: CBC, BMP 01/21/18 07:00 01/21/18 07:00 Assessment/Plan Patient is status-post '360' Liposuction of Abdomen, Flanks, Lower/Mid Back on by Dr. Gen Chamberlain. Persistent pain and swelling. Developed unusual swelling Left Lower Quadrant which was aspirated and reportedly a hematoma. Now presents with a draining wound at this previous hematoma site which she now claims is worsening. CT scan done in ER shows multiple subcutaneous seromas as would be expected 2 weeks after liposuction. The patient claims to have received no postoperative instructions and she has not received any calls back from the physician. Physical Exam reveals a draining abscess in the Left Lower Quadrant. Abdomen, Flanks and Back are unusually indurated for this time-frame postop. No other areas of infection are noted. WBC is normal and she is afebrile. Incision and drainage was performed of the Left Lower Quadrant abscess using local anesthesia. Cavity drained and packed with Iodoform packing. A call was placed to Dr. Chamberlain. The patient is extremely nauseus since her antibiotic was changed, so I changed her to Ancef IV.
[2018-01-21] MEDS ORDERED: LIDOCAINE HCL 1%, 10 MG/ML (20ML VIAL) ONE (15:55)
[2018-01-21] MEDS ORDERED: KETOROLAC TROMETHAMINE 30 MG/1 ML VIAL IVPUSH PRN (16:41)
[2018-01-21] MEDS: CEFAZOLIN 1 GM/D5W 1 GM/50 ML BAG IVPB SCH (19:00)
[2018-01-21] MEDS ORDERED: TIGECYCLINE 50 MG in DEXTROSE 5%-WATER - 100 ML IVPB SCH (22:00)
[2018-01-22 00:04] VITALS: BP 117/73; PULSE 85; TEMP 97.8
[2018-01-22] MEDS: CEFAZOLIN 1 GM/D5W 1 GM/50 ML BAG IVPB SCH ×3 (03:06→09:49)
[2018-01-22] MEDS: LACTATED RINGERS SOLUTION 1,000 ML/1,000 ML INFUS.BAG IV SCH (03:06)
[2018-01-22] MEDS: HEPARIN NA (PORCINE) 5,000 UNITS/ML 1ML VIAL SQ SCH (06:39)
[2018-01-22 07:26] LABS: HEMATOCRIT 35.7 % (32.4-45.2); HEMOGLOBIN 11.7 GM/dL (10.7-15.3); MCH 26.4 pg (25.7-33.7); MCHC 32.8 g/dl (32.0-36.0); MEAN CELL VOLUME 80.7 fl (80-96); MEAN PLT VOLUME 7.2 fl (7.5-11.1); PLATELET COUNT 357 K/MM3 (134-434); RBC 4.43 M/mm3 (3.60-5.2); RDW 14.2 % (11.6-15.6); WHITE BLOOD COUNT 5.4 K/mm3 (4.0-10.0)
--- NOTE | 2018-01-22 08:50 | DS ---
Physical Exam: SUBJECTIVE: Patient seen and examined. pain improved after I&D of abscess. continues to have some discomfort. denies CP, SOB, fever, chills, N/V/C/D. was able to tolerate cephalosporin OBJECTIVE: Vital Signs Period Temp Pulse Resp BP Sys/Frazier Pulse Ox Last 24 Hr 97.8 F-98.5 F 77-85 0-18 117-125/73-76 98-98 PHYSICAL EXAM GENERAL: The patient is awake, alert, and fully oriented, in no acute distress. HEAD: Normal with no signs of trauma. EYES: PERRL, extraocular movements intact, sclera anicteric, conjunctiva clear. ENT: Ears normal, nares patent, oropharynx clear without exudates, moist mucous membranes. NECK: Trachea midline, full range of motion, supple. LUNGS: Breath sounds equal, clear to auscultation bilaterally, no wheezes, no crackles, no accessory muscle use. HEART: Regular rate and rhythm, S1, S2 without murmur, rub or gallop. ABDOMEN: soft with multiple firm nodule areas, LLQ with incision with packing, normoactive bowel sounds, no guarding, no rebound, no hepatosplenomegaly, no masses. EXTREMITIES: 2+ pulses, warm, well-perfused, no edema. NEUROLOGICAL: Cranial nerves II through XII grossly intact. Normal speech, gait not observed. PSYCH: Normal mood, normal affect. SKIN: Warm, dry, normal turgor, no rashes or lesions noted. LABS Laboratory Results - last 24 hr 01/21/18 01/21/18 01/21/18 07:00 07:00 07:00 WBC RBC Hgb Hct MCV MCH MCHC RDW Plt Count MPV ESR 19 Sodium 138 Potassium 3.2 L Chloride 103 Carbon Dioxide 27 Anion Gap 8 BUN 9 Creatinine 0.9 Creat Clearance w eGFR > 60 Random Glucose 139 H Calcium 8.2 L Total Bilirubin 0.1 L D AST 10 L ALT 6 L Alkaline Phosphatase 43 L Total Protein 5.9 L Albumin 3.0 L Blood Type A POSITIVE Antibody Screen Negative 01/21/18 01/22/18 09:35 06:00 WBC 5.4 RBC 4.43 Hgb 11.7 Hct 35.7 MCV 80.7 MCH 26.4 MCHC 32.8 RDW 14.2 Plt Count 357 MPV 7.2 L ESR Sodium Potassium Chloride Carbon Dioxide Anion Gap BUN Creatinine Creat Clearance w eGFR Random Glucose Calcium Total Bilirubin AST ALT Alkaline Phosphatase Total Protein Albumin Blood Type A POSITIVE Antibody Screen HOSPITAL COURSE: Date of Admission:01/20/18 Date of Discharge: 01/22/18 Admitting Diagnosis: Abdominal wall abscess Procedures I&D 01/21 Pre hospital course 32 yo woman w/ pmh of RA, migraines, fibromyalgia who presents with persistent abdominal pain over the last two weeks since receiving liposuction on 01/04 in . Pt states she received liposuction on 01/04, with a post-procedural course complicated by an abdominal wall hematoma on L lateral abdomen, which was drained by the performing surgeon Dr. Mary Chamberlain 4 days after the procedure. Pt was placed on PO levaquin and finished her abx course, prescribed 800mg motrin for pain, with moderate relief of pain. Since then, pt endorses worsening diffuse abdominal pain, increasing induration of the abdominal wall, now spreading to BL back pain over last few days. Pt endorses occasional chills and diaphoresis at night and endorses general malaise, lightheadness and unsteady gait. She was seen by her PMD who urged her to come to the ED for suspected sepsis. Pt denies fevers, GUTIERREZ, vision changes, sinus pain/congestion, throat pain, cough, SOB, peripheral edema, neuro symptoms. She endorses one episode of chest tightness/anxiety two days ago, which has since resolved. She denies diarrhea/constipation, dysuria, frequency. Pt states she has been unable to contact surgeon since her hematoma drainage. Subsequent hospital course Admitted to medicine. CT showing multiple seromas across the abdomen likely post -op form liposuction with abscess in LLQ. started on tygacil for infection due to multiple allergies. Abx was switched to Cefazolin due to severe nausea which she tolerated well without reaction. ID and plastics consulted. [employer] performed bedside I&D. cx sent to lab. clinically improved. was discharged on doxy for MRSA coverage x1week. Plastics will need to f/u wound cx and specify if duration should change. Minutes to complete discharge: 40 Discharge Summary Reason For Visit: POSTOPERATIVE WOUND ABSCESS Current Active Problems Abscess or cellulitis of flank (Acute) Allergy to multiple antibiotics (Acute) Fibromyalgia (Acute) Localized adiposity of abdomen (Acute) Localized adiposity of flank (Acute) Migraines (Acute) Postoperative wound abscess (Acute) Seroma after procedure (Acute) Condition: Improved - Instructions Diet, Activity, Other Instructions: You were treated for an abscess, likely complications from the liposuction. Follow up with Dr Huizar (plastics) today at his office as planned. Follow his instruction on caring for your wound Take tylenol as needed for pain. You are being started on Doxycylcine for your infection. If you notice rash stop the medications. If you notice swelling or tingling of the lips or mouth stop the medication immediately and come to the ER. You are being given a 1 week supply of antibiotic. Speak with Dr huizar if you should continue this medication for a longer period of time. Dr Huizar will notify you if you should change your antibiotic Follow up with your primary care doctor in 1 week IF your symptoms worsen or develop fever (temp >101) return to the ER. Referrals: Shawn Silva MD [Primary Care Provider] - Harman Huizar MD [Staff Physician] - Disposition: HOME - Home Medications Comprehensive Discharge Medication List: Ambulatory Orders Acetaminophen [Tylenol] 650 mg PO PRN 01/21/18 Lidocaine 5% Patch [Lidoderm -] 1 patch TD PRN PRN 01/21/18 Lyrica PO PRN 01/21/18 Prednisone PO PRN 01/21/18 Ondansetron [Zofran *Odt*] 8 mg SL TID PRN #15 od.tablet 01/22/18 This patient is new to me today: No Emergency Visit: Yes ED Registration Date: 01/20/18 Care time: The patient presented to the Emergency Department on the above date and was hospitalized for further evaluation of their emergent condition. Critical Care patient: No - Discharge Referral Referred to [facility] Med P.C.: No
[2018-01-22 11:12] LABS: CHLORIDE 103 mmol/L (98-107); POTASSIUM 4.1 mmol/L (3.5-5.1); SODIUM 137 mmol/L (136-145)
[2018-01-22 12:00] LABS: ANION GAP 10 (8-16); BLOOD UREA NITROGEN 16 mg/dL (7-18); CALCIUM 8.8 mg/dL (8.5-10.1); CO2 24 mmol/L (21-32); CREATININE 0.9 mg/dL (0.55-1.02); GLUCOSE,RANDOM 82 mg/dL (74-106)
== END 2018-01-22 11:00 | disposition home or self-care (01) | DRG 857 ==
LOC: JER 12:33 → JERBED 18:14 → OBSVTOIN 21:57 → J4S 23:18
PROVIDERS: ADMIT Internal Medicine; ATTEND Internal Medicine
PROC: 0W9G0ZZ Drainage of Peritoneal Cavity, Open Approach (ICD-10-PCS; principal; 2018-01-21)
DX: T81.4XXA Infection following a procedure, initial encounter (principal); L76.34 Postprocedural seroma of skin and subcutaneous tissue following other procedure; L03.311 Cellulitis of abdominal wall; Y83.8 Other surgical procedures as the cause of abnormal reaction of the patient, or of later complication, without mention of misadventure at the time of the procedure; Y92.9 Unspecified place or not applicable; E65 Localized adiposity; E87.6 Hypokalemia; M79.7 Fibromyalgia; M06.9 Rheumatoid arthritis, unspecified; G43.909 Migraine, unspecified, not intractable, without status migrainosus; Z88.1 Allergy status to other antibiotic agents
CPT/HCPCS: 36415; 74177-TC; 80048; 80053; 83735; 84703; 85025; 85027; 85610; 85651; 85730; 86140; 86850; 86900; 86901; 87040; 87070; 87077; 87205; 99283-25; G0378; J0131; J1644; J3243

== ENCOUNTER 2018-01-29 13:10 | Emergency (ER) | payer OTHER ==
[2018-01-29 13:15] VITALS: TEMP 98.3; BMI 25.4
--- NOTE | 2018-01-29 13:18 | PDOC ---
History of Present Illness - General Chief Complaint: Pain Stated Complaint: ABD/BACK PAIN Time Seen by Provider: 01/29/18 13:18 History Source: Patient Exam Limitations: No Limitations - History of Present Illness Initial Comments: 01/29/18 13:50 The patient is a 32 year old female, with a significant past medical history of migraines, RA, fibromyalgia, liposuction on January 04, who presents to the emergency department complaining of diffuse abdominal pain sharp like electric shock , comes and goes ,since day of surgery worsen last night that prompted the pt to come to ED. she describe the pain as 9/10, on the abdominal area, flank area and the back. improved when she is laying down and worsen when she is sitting up. the pt was in ED January 22 for the same reasons. The diffuse abdominal pain has been there since her liposuction surgery on January 04. She states that the pain is in the abdominal wall. She also reports that the skin feels very swollen The patient reports she notified her surgeon Dr. Chamberlain 2 days after the surgery and was seen in the office four days. At that time they found a hematoma that was drained. Pt was also given a course of Levaquin, which she completed. Pt denies any F/C. Denies bleeding or drainage from any of the surgical sites. The patient reports taking 800 mg of Motrin for the abdominal pain with minimal relief. She denies recent fevers, chills, headache or dizziness. She denies recent vomit, or diarrhea but reports nausea and constipation she reports loss of appetite and 10 pounds weight loss last couple weeks. She denies recent dysuria , frequency, urgency or hematuria. She denies recent chest pain or shortness of breath. Allergies: clindamycine, vancomycin, codeine, oxycodone, penicillin, pineapple, eggs Past surgical history: 2011 . Liposuction 360 surgery on 01/04/18. Dilation and curettage October 2017. Social history: denies smoking alcohol or drug abuse Primary Care Physician: Dr. Kuo Surgeon: Dr. Chamberlain Physical exam: Vital Signs Period Temp Pulse Resp BP Sys/Frazier Pulse Ox Last 24 Hr 98.3 F 83 18 122/64 100 General: well nourished in NAD Head: NC/AT Neck: supple , FROM ENT: MMM. SANTY, EOMI Lungs: CTA B/L Heart : RRR, No MRG Abdomen: soft , non distended , skin tender to supperficial touch, skin firm in stomack and flank area. + BS , 0.5 small healing wound from previous abscess. Neuro: no focal deficit, AAOx 3 Psych: appropriate mood and effect. A/P will order CBC and cmp , morphine for pain , zofran for nausea will reassess the patient after the result. 01/29/18 18:00 cbc, cmp with no signs of infection or electrolytes imbalance CT scan abdomen pelvic with IV contrast came back negative for any abscess , no localized inflammatory fluid collection. Pt will be dc home and she will follow up with her PCP and plastic surgeon as out pt Past History - Past Medical History Allergies/Adverse Reactions: Allergies Allergy/AdvReac Type Severity Reaction Status Date / Time clindamycin Allergy Verified 01/29/18 13:11 codeine Allergy Verified 01/29/18 13:11 egg Allergy Verified 01/29/18 13:11 oxycodone Allergy Verified 01/29/18 13:11 Penicillins Allergy Verified 01/29/18 13:11 pineapple Allergy Verified 01/29/18 13:11 vancomycin Allergy Verified 01/29/18 13:11 Home Medications: Ambulatory Orders Doxycycline Monohydrate [Mondoxyne Nl] 100 mg PO BID #14 capsule 01/22/18 Ondansetron [Zofran *Odt*] 8 mg SL TID PRN #15 od.tablet 01/22/18 Ibuprofen [Motrin -] 800 mg PO TID 01/29/18 COPD: No Thyroid Disease: No (R.A, FIBROMYALGIA,MIGRAINES) - Surgical History Abdominal Surgery: Yes (LIPO SUCTION) - Suicide/Smoking/Psychosocial Hx Smoking History: Never smoked Have you smoked in the past 12 months: No Information on smoking cessation initiated: No Hx Alcohol Use: No Drug/Substance Use Hx: No Substance Use Type: None Hx Substance Use Treatment: No *Physical Exam - Vital Signs Last Vital Signs Temp Pulse Resp BP Pulse Ox 98.3 F 83 18 122/64 100 01/29/18 13:13 01/29/18 13:13 01/29/18 13:13 01/29/18 13:13 01/29/18 13:13 ED Treatment Course - LABORATORY CBC & Chemistry Diagram: 01/29/18 15:15 01/29/18 15:15 *DC/Admit/Observation/Transfer Diagnosis at time of Disposition: Pain - Discharge Dispostion Disposition: HOME Admit: No - Referrals Referrals: Shawn Peña [Primary Care Provider] - 1 week Harman Huizar MD [Staff Physician] - 3 days - Patient Instructions Additional Instructions: you presented to the emergency room due to sever abdominal and back pain after the liposuction procedure that started 3 weeks ago. You were treatd with pain meds and iV fluids . the work up and images came back negative fot any source of abscess or infection Please follow up with as out patient. Please use Motrin as needed for pain Please continue antibiotics course please keep your self hydrated Please use colace yo prevent constipation as needed. f you develop fever, chills or your symptoms worsen please return to EM [facility]. - Post Discharge Activity
[2018-01-29] MEDS ORDERED: morphine CARPU-JECT 2 MG/1 ML DISP.SYRIN IM ONE (13:45)
[2018-01-29] MEDS ORDERED: morphine CARPU-JECT 2 MG/1 ML DISP.SYRIN IVPUSH ONE ×3 (13:54→18:00)
[2018-01-29] MEDS ORDERED: SODIUM CHLORIDE 1,000 ML IV SCH (14:00)
[2018-01-29] MEDS ORDERED: morphine SULFATE 4 MG/ML VIAL ONE ×2 (14:05→15:12)
[2018-01-29] MEDS ORDERED: ONDANSETRON 4 MG/2 ML VIAL IVPB ONE (14:18)
[2018-01-29] MEDS ORDERED: ONDANSETRON 4 MG/2 ML VIAL ONE ×2 (14:19→16:48)
[2018-01-29] MEDS ORDERED: morphine CARPU-JECT 4 MG/1 ML DISP.SYRIN IVPUSH ONE (15:06)
--- NOTE | 2018-01-29 15:06 | PDOC ---
Attending Attestation - Resident Resident Name: Keith Lundberg - ED Attending Attestation I have performed the following: I have examined & evaluated the patient, The case was reviewed & discussed with the resident, I agree w/resident's findings & plan, Exceptions are as noted - HPI HPI: 01/29/18 15:02 32 F with h/o migraines, rheumatoid arthritis, fibromyalgia, liposuction on c/b post-op abscess s/p I&D on 01/21/18, presenting today with worsening pain. Pt states that her pain was well controlled with motrin after her I&D. However, over the past day, she began to develop sharp electric pain in her R side. Pt denies any additional drainage from her I&D sites. Denies F/C. States that she feels like her abdomen is "firmer" than it was before. Pt denies N/V/D/ constipation. Denies dysuria. - Physicial Exam PE: 01/29/18 15:04 "GENERAL: Awake, alert, and fully oriented, in no acute distress HEAD: No signs of trauma EYES: PERRLA, EOMI, sclera anicteric, conjunctiva clear ENT: Auricles normal inspection, hearing grossly normal, nares patent, oropharynx clear without exudates. Moist mucosa NECK: Nontender, no stepoffs, Normal ROM, supple, no lymphadenopathy, JVD, or masses LUNGS: Breath sounds equal, clear to auscultation bilaterally. No wheezes, and no crackles HEART: Regular rate and rhythm, normal S1 and S2, no murmurs, rubs or gallops ABDOMEN: + several areas of induration in abdominal wall, no active drainage or bleeding, no significant erythema EXTREMITIES: Normal range of motion, no edema. No clubbing or cyanosis. No cords, erythema, or tenderness NEUROLOGICAL: Cranial nerves II through XII intact. 5/5 strength and sensation in all extremities, Normal speech, normal gait, normal cerebellar function SKIN: Warm, Dry, normal turgor, no rashes or lesions noted. " - Medical Decision Making 01/29/18 15:05 32 F with recent liposuction c/b abdominal wall abscess s/p I&D presenting with worsening pain in her abdominal wall. Concerning for reaccumulation of abscess. - Labs - CT abd/pelv w/ IV contrast - Pain control - Consult plastics Dr. Huizar 01/29/18 16:18 Labs wnl, no leukocytosis Pending CTAP.
[2018-01-29 15:23] LABS: BASO % 0.5 % (0-2.0); EOS % 0.3 % (0-4.5); HEMATOCRIT 33.9 % (32.4-45.2); LYMPH % 42.7 % (8-40); MCH 26.5 pg (25.7-33.7); MCHC 32.5 g/dl (32.0-36.0); MEAN CELL VOLUME 81.3 fl (80-96); MEAN PLT VOLUME 7.6 fl (7.5-11.1); NEUT % 46.5 % (42.8-82.8); PLATELET COUNT 222 K/MM3 (134-434); RBC 4.17 M/mm3 (3.60-5.2); RDW 14.4 % (11.6-15.6); WHITE BLOOD COUNT 3.8 K/mm3 (4.0-10.0)
[2018-01-29 15:50] LABS: ALK PHOS 43 U/L (45-117); ANION GAP 5 (8-16); BILIRUBIN,TOTAL 0.2 mg/dL (0.2-1.0); BLOOD UREA NITROGEN 10 mg/dL (7-18); CALCIUM 8.3 mg/dL (8.5-10.1); CHLORIDE 112 mmol/L (98-107); CO2 26 mmol/L (21-32); CREATININE 0.6 mg/dL (0.55-1.02); GLUCOSE,RANDOM 86 mg/dL (74-106); POTASSIUM 4.3 mmol/L (3.5-5.1); SGOT/AST 10 U/L (15-37); SGPT/ALT 13 U/L (12-78); SODIUM 143 mmol/L (136-145); TOT PROT 5.9 g/dl (6.4-8.2)
[2018-01-29] MEDS ORDERED: ONDANSETRON 4 MG/2 ML VIAL IVPUSH ONE (16:48)
--- NOTE | 2018-01-29 17:57 | PDOC ---
*Physical Exam - Vital Signs Last Vital Signs Temp Pulse Resp BP Pulse Ox 98.3 F 83 18 122/64 100 01/29/18 13:13 01/29/18 13:13 01/29/18 13:13 01/29/18 13:13 01/29/18 13:13 ED Treatment Course - LABORATORY CBC & Chemistry Diagram: 01/29/18 15:15 01/29/18 15:15 - ADDITIONAL ORDERS Additional order review: Laboratory Results 01/29/18 01/29/18 01/29/18 15:15 15:15 14:39 Sodium 143 Potassium 4.3 Chloride 112 H Carbon Dioxide 26 Anion Gap 5 L BUN 10 Creatinine 0.6 Creat Clearance w eGFR > 60 Random Glucose 86 Calcium 8.3 L Total Bilirubin 0.2 D AST 10 L ALT 13 Alkaline Phosphatase 43 L Total Protein 5.9 L Albumin 3.0 L Beta HCG, Quant < 1.0 Urine HCG, Qual Negative 01/29/18 14:20 Sodium Cancelled Potassium Cancelled Chloride Cancelled Carbon Dioxide Cancelled Anion Gap Cancelled BUN Cancelled Creatinine Cancelled Creat Clearance w eGFR Cancelled Random Glucose Cancelled Calcium Cancelled Total Bilirubin Cancelled AST Cancelled ALT Cancelled Alkaline Phosphatase Cancelled Total Protein Cancelled Albumin Cancelled Beta HCG, Quant Urine HCG, Qual 01/29/18 01/29/18 15:15 14:20 RBC 4.17 Cancelled MCV 81.3 Cancelled MCHC 32.5 Cancelled RDW 14.4 Cancelled MPV 7.6 Cancelled Neutrophils % 46.5 Cancelled Lymphocytes % 42.7 H Cancelled Monocytes % 10.0 Cancelled Eosinophils % 0.3 Cancelled Basophils % 0.5 Cancelled - Medications Given in the ED: ED Medications Discontinued Medications Generic Name Dose Route Start Last Admin Trade Name Raudelq PRN Reason Stop Dose Admin Morphine Sulfate 2 mg 01/29/18 13:45 01/29/18 14:26 Morphine Injection - IM 01/29/18 13:46 Not Given ONCE ONE Morphine Sulfate 1 mg 01/29/18 13:54 01/29/18 14:17 Morphine Injection - IVPUSH 01/29/18 13:55 1 mg ONCE ONE Administration Morphine Sulfate 4 mg 01/29/18 15:06 01/29/18 15:19 Morphine Injection - IVPUSH 01/29/18 15:07 4 mg ONCE ONE Administration Morphine Sulfate 1 mg 01/29/18 15:13 01/29/18 14:17 Morphine Injection - IVPUSH 01/29/18 15:14 1 mg ONCE ONE Administration Ondansetron HCl 4 mg 01/29/18 14:18 01/29/18 14:27 Zofran Injection IVPB 01/29/18 14:19 4 mg ONCE ONE Administration Ondansetron HCl 4 mg 01/29/18 16:48 01/29/18 16:50 Zofran Injection IVPUSH 01/29/18 16:49 4 mg ONCE ONE Administration Medical Decision Making - Medical Decision Making 01/29/18 17:55 ct scan abd/pel NEGATIVE for any abscess no fever,no leukocytosis pt instructed to finish the antibiotics she already started and to keep her appointment this week with the plastic surgeon Dr Huizar *DC/Admit/Observation/Transfer Diagnosis at time of Disposition: Pain - Discharge Dispostion Disposition: HOME - Referrals Referrals: Shawn Peña [Primary Care Provider] - 1 week Harman Huizar MD [Staff Physician] - 3 days - Patient Instructions Additional Instructions: you presented to the emergency room due to sever abdominal and back pain after the liposuction procedure that started 3 weeks ago. You were treatd with pain meds and iV fluids . the work up and images came back negative fot any source of abscess or infection Please follow up with as out patient. Please use Motrin as needed for pain Please continue antibiotics course please keep your self hydrated Please use colace yo prevent constipation as needed. f you develop fever, chills or your symptoms worsen please return to EM [facility]. - Post Discharge Activity
[2018-01-29] MEDS ORDERED: MORPHINE SULFATE 10 MG/1 ML *VIAL ONE (18:04)
[2018-01-29 18:13] VITALS: BP 124/81; PULSE 81
== END 2018-01-29 18:20 | disposition home or self-care (01) ==
LOC: JER 13:10
DX: G89.18 Other acute postprocedural pain (principal); M06.9 Rheumatoid arthritis, unspecified; Z86.69 Personal history of other diseases of the nervous system and sense organs
CPT/HCPCS: 36415; 74177-TC; 80053; 84702; 84703; 85025; 99283-25; J7030

== ENCOUNTER 2018-11-14 09:00 | Inpatient (IN) | payer OTHER ==
[2018-11-14] MEDS ORDERED: CITRIC ACID/SODIUM CITRATE 30 ML UNIT-DOSE CUP PO ONE (11:50)
--- NOTE | 2018-11-14 11:50 | HP ---
Past Medical History - Primary Care Physician PCP:: Fany Villalta - Admission Chief Complaint: 33yo P 1 @ 39.2 weeks for Elective repeat c/section History of Present Illness: 1. 20wk Transfer from [facility] 2. Prior c/section @ 36weeks for IUGR 3. h/o Liposuction and abdominoplasty 4. Fibromyalgia/RA - off meds 5. Depression - seeing Mental health, for Zoloft 25mg PP 6. Oxicodone allergy 7. 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 Hepatobiliary: Yes: Cholelithiasis, Cholecystitis ...: 4 ...: 1 (36wks IUGR) ...Spon : 2 ...EDC by Dates: 11/19/18 Rheumatology: Yes: Fibromyalgia, Rheumatoid Arthritis - Past Surgical History Past Surgical History: Yes: , Tonsillectomy Hx Myomectomy: No Hx Transabdominal Cerclage: No Additional Surgical History: Abdominoplasty/Liposuction - Smoking History Smoking history: Never smoked Have you smoked in the past 12 months: No - Alcohol/Substance Use Hx Alcohol Use: No History of Substance Use: reports: None - 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 History of Recent Travel: No Home Medications - Allergies Allergies/Adverse Reactions: Allergies Allergy/AdvReac Type Severity Reaction Status Date / Time clindamycin Allergy Verified 11/14/18 12:36 codeine Allergy Verified 11/14/18 12:36 egg Allergy Verified 11/14/18 12:36 oxycodone Allergy Verified 11/14/18 12:36 penicillin G Allergy Verified 11/14/18 12:36 Penicillins Allergy Verified 11/14/18 12:36 pineapple Allergy Verified 11/14/18 12:36 vancomycin Allergy Verified 11/14/18 12:36 - Home Medications Home Medications: Ambulatory Orders Pnv No.95/Ferrous Fum/Folic AC [ Formula] 1 each PO DAILY 10/20/18 Review of Systems - Review of Systems Constitutional: reports: No Symptoms Eyes: reports: No Symptoms HENT: reports: No Symptoms Neck: reports: No Symptoms Cardiovascular: reports: No Symptoms Respiratory: reports: No Symptoms Gastrointestinal: reports: No Symptoms Genitourinary: reports: No Symptoms Breasts: reports: No Symptoms Reported Musculoskeletal: reports: No Symptoms Integumentary: reports: No Symptoms Neurological: reports: No Symptoms Endocrine: reports: No Symptoms Hematology/Lymphatic: reports: No Symptoms Psychiatric: reports: No Symptoms Physical Exam - Maternity Constitutional: Yes: Well Nourished, No Distress, Calm Eyes: Yes: WNL HENT: Yes: WNL, Atraumatic, Normocephalic Neck: Yes: WNL, Supple, Trachea Midline Cardiovascular: Yes: WNL, Regular Rate and Rhythm Lungs: Clear to auscultation Breast(s): Yes: WNL - Abdominal Exam/OB Fundal Height: 39 Number of Fetuses: Single Presentation: Vertex Contractions: No Monitor Mode: External Heart Rate (range): 130 Heart Rate Location: Midline Category: I Accelerations: Uniform Decelerations: None - Vaginal Exam/OB Vaginal Bleediing: No Speculum Exam: No Amniotic Membrane Status: Intact Presentation: Vertex/Position Station: -3 - Physical Exam Musculoskeletal: Yes: WNL Extremities: Yes: WNL Edema: No Integumentary: Yes: WNL Deep Tendon Reflex Grade: Normal +2 ...Motor Strength: WNL Psychiatric: Yes: WNL, Alert, Oriented - Labs Lab Results: Apos/RI/HepB neg/HIV neg/ GCT-89/NR Assessment/Plan 33yo P1 @ 39.2 weeks for Elective repeat c/section declines BTL admitted for repeat C/S. IVF/NPO/Admit labs Anesthesia aware The pt is not in labor. The fetus with Category I tracing. The decision was made to proceed with delivery by C/S. We discussed the risks and benefits of C/S at length, including but not limited to scarring, pain, bleeding, infection, injury to underlying organs and structures, need for additional surgery to repair/treat any problems or complications, complications/injuries, etc. The pt verbalized her understanding and requested to proceed with surgery.
[2018-11-14] MEDS ORDERED: ELECTROLYTE-148 SOLN 1,000 ML IV SCH (12:00)
[2018-11-14 12:28] VITALS: BMI 30.2
[2018-11-14] MEDS ORDERED: DOXYCYCLINE INJECTION 100 MG in DEXTROSE 5%-WATER - 100 ML IVPB ONE (13:45)
[2018-11-14] MEDS ORDERED: METHYLERGONOVINE MALEATE 0.2 MG/1 ML AMP IM PRN (13:48)
[2018-11-14] MEDS ORDERED: morphine SULFATE/Preservative Free 0.5 MG/ML (1cc Syringe) ONE (13:52)
--- NOTE | 2018-11-14 13:54 | PN ---
Delivery - Delivery Section: Repeat Type of Anesthesia: Spinal Episiotomy/Laceration: None EBL (cc): 700 Delivery, Single - Stages of Labor Date of Delivery: 11/14/18 Date Placenta Delivered: 11/14/18 Placenta: Yes: Expressed - Condition of Chief Operations Officer/Director Of Donor Relations Present: Yes Gender: Male Weight: 6 lb 10 oz - 1 Minute Total Score: 8 5 Minutes Total Score: 9 - Feeding Plan Initial Plan: Exclusive throughout hospitalization Benefits of Exclusively reinforced: Yes Remarks - Remarks Remarks: Large amount of scar tissue
--- NOTE | 2018-11-14 13:54 | OP ---
Operative Note - Note: Operative Date: 11/14/18 Pre-Operative Diagnosis: 33yo P1 with prior c/section for elective repeat Operation: Repeat LST c/section Findings: Very scarred skin Viable male APGARs 9/9, 6.10lb Intact expressed placenta Post-Operative Diagnosis: Same as Pre-op Surgeon: Fany Villalta Filer Finish: Jose M Solis Anesthesiologist/DEBURRING AND TOOLING MACHINE OPERATOR: Luc Guzman Anesthesia: Spinal Specimens Removed: Viable male APGARs 9/9. Intact placenta Estimated Blood Loss (mls): 700 Drains, Volume Out (mls): 100 Fluid Volume Replaced (mls): 2,000 Operative Report Dictated: Yes
[2018-11-14] MEDS ORDERED: DEXTROSE 5%-LACTATED RINGERS 1,000 ML IV SCH (14:00)
[2018-11-14] MEDS ORDERED: OXYTOCIN 20 UNITS in 0.9% NS 20 UNIT/1,000 ML INFUS.BAG IV SCH (14:00)
[2018-11-14] MEDS ORDERED: ceFAZolin SODIUM 1 GM VIAL ONE ×2 (14:05)
[2018-11-14] MEDS ORDERED: MIDAZOLAM HCL 2 MG/2 ML SINGLE DOSE VIAL ONE (14:20)
[2018-11-14] MEDS ORDERED: ONDANSETRON 4 MG/2 ML VIAL IVPUSH PRN (15:09)
[2018-11-14] MEDS ORDERED: IBUPROFEN 600 MG TABLET (FP) PO PRN (15:09)
[2018-11-14] MEDS ORDERED: ACETAMINOPHEN 1000 MG/100 ML VIAL (NON FORMULARY) IVPB PRN (15:15)
[2018-11-14 15:18] LABS: VENOUS PC02 43.4 mmHg (38-52); VENOUS PH 7.38 (7.32-7.42); VENOUS PO2 25.4 mmHg (28-48)
[2018-11-14] MEDS ORDERED: ACETAMINOPHEN INJECTION 100 ML IVPB ONE (15:39)
[2018-11-14] MEDS: IBUPROFEN 800 MG/8 ML IJ IVPB PRN (16:30)
[2018-11-14] MEDS ORDERED: IBUPROFEN 800 MG/8 ML IJ IVPB ONE (16:30)
[2018-11-14] MEDS ORDERED: OXYTOCIN 20 UNITS in 0.9% NS 20 UNIT/1,000 ML INFUS.BAG IV ONE (16:30)
[2018-11-14] MEDS ORDERED: GABAPENTIN 300 MG CAPSULE (FP) PO ONE (19:15)
[2018-11-14] MEDS: GABAPENTIN 300 MG CAPSULE (FP) PO SCH (22:00)
--- NOTE | 2018-11-14 23:32 | OP ---
DATE OF OPERATION: 11/14/2018 PREOPERATIVE DIAGNOSIS: A 33-year-old, para 1 with prior section for elective repeat. OPERATION: Repeat low segment transverse section. FINDINGS: Very scarred skin and fascia and some additional omental adhesions intra-abdominally. Viable male with Apgars of 8 and 9, weighing 6 pounds 10 ounces. Intact, expressed placenta. POSTOPERATIVE DIAGNOSIS: A 33-year-old, para 1 with prior section for elective repeat. SURGEON: Fany Villalta MD CLINICAL SUPPORT ASSOCIATE: Jose M Solis MD ANESTHESIOLOGIST: Luc Guzman MD ANESTHESIA: Spinal. DESCRIPTION OF PROCEDURE: After assuring informed consent, the patient was brought to the operating room where she was placed in the dorsal supine position with left lateral tilt. Pfannenstiel skin incision was created with a scalpel and carried down to the level of the fascia with the scalpel. Fascia was incised in the midline with scalpel and incision was extended bilaterally with Bovie cautery. The fascia was scarred densely to the skin and it was a very nonpliable incision, which required extension with significant difficulty encountered, trying to stretch the incision. The fascia was dissected off of the rectus abdominis muscle superiorly and inferiorly with Bovie cautery. Muscle was split in the midline and the peritoneum was identified, tented with Saskia clamps, and dissected with a scalpel. Multiple layers were created with the scalpel to protect the underlying bladder and bowel. Very little give was identified, so the abdominal incision was extended even further. The bladder was retracted with bladder blade and gutters were packed with lap sponges. The vesicouterine peritoneum was identified, tented, and dissected off of the anterior uterine wall. Bladder flap was created and retracted with the lower edge of the [place]. Uterine incision was made with a scalpel and extended bilaterally with bandage scissors. The infant's head was identified and delivered atraumatically; however, due to scarring, the muscle needed partial dissection. The rest of the infant's body was delivered atraumatically. Cord was clamped and cut. Male was handed to awaiting trackwalker. Placenta was expressed without difficulty. Uterus was cleared of clots and debris and repaired with 0 Biosyn in 2 layers, the second layer was an imbricating layer. Multiple omental adhesions were noted and were dissected off of the anterior abdominal wall. Lap sponges were removed. Abdomen was irrigated copiously. Excellent hemostasis was noted. The peritoneum was closed with 0 Biosyn. Muscle was reapproximated in the midline and repaired with 0 Biosyn. The fascia was closed with 0 Vicryl in running fashion. The skin subsequently was closed with a V-Loc suture with 4-0 Biosyn suture. All instruments and sponges were counted x2 and correct. The estimated blood loss was 700 mL. Urine output was 100 mL. Patient received 2000 mL of IV fluids and was brought stable to the recovery room. Gena [id number]
[2018-11-14] MEDS ORDERED: MORPHINE SULFATE 2 MG/ML VIAL IVPB ONE (23:45)
[2018-11-14] MEDS ORDERED: WITCH HAZEL 50% (TUCKS) 40 PAD/JAR PAD TP PRN (23:46)
[2018-11-14] MEDS ORDERED: BENZOCAINE 20% 57 GM BOTTLE TP PRN (23:46)
[2018-11-14] MEDS ORDERED: BENZOCAINE 28 GM HEMORRHOIDAL OINTMENT TP PRN (23:46)
[2018-11-15] MEDS ORDERED: OXYTOCIN 20 UNITS in 0.9% NS 20 UNIT/1,000 ML INFUS.BAG IV SCH (03:30)
[2018-11-15] MEDS: IBUPROFEN 800 MG/8 ML IJ IVPB PRN ×2 (03:45→12:05)
[2018-11-15 06:04] LABS: BASO % 0.2 % (0-2.0); EOS % 0.1 % (0-4.5); HEMATOCRIT 35.6 % (32.4-45.2); LYMPH % 11.1 % (8-40); MCH 28.3 pg (25.7-33.7); MCHC 33.7 g/dl (32.0-36.0); MEAN CELL VOLUME 84.2 fl (80-96); MONO % 12.5 % (3.8-10.2); NEUT % 76.1 % (42.8-82.8); PLATELET COUNT 194 K/MM3 (134-434); RBC 4.23 M/mm3 (3.60-5.2); RDW 14.2 % (11.6-15.6); WHITE BLOOD COUNT 9.2 K/mm3 (4.0-10.0)
[2018-11-15] MEDS: GABAPENTIN 300 MG CAPSULE (FP) PO SCH ×3 (06:35→22:51)
[2018-11-15] MEDS: ENOXAPARIN NA (PORCINE) 40 MG/0.4 ML DISP.SYRIN SQ SCH (09:33)
--- NOTE | 2018-11-15 10:02 | PN ---
Progress Note (short form) - Note Progress Note: Post op day#1.S/P C Section under spinal anesthesia with duramorph uneventful.Patient stable and c/o some pain for which she is on medication.No any anesthesia related problem.Patient DC from the anesthesia care.
[2018-11-15] MEDS: SERTRALINE HCL 25 MG TABLET (FP) PO SCH (10:57)
--- NOTE | 2018-11-15 13:15 | PN ---
Post Progress Note - Subjective Subjective: No complains pain well controlled, no n/v, small BM ambulating Post Day: 1 Type of Delivery: Repeat C/S Vital Signs: Vital Signs Temperature 97.6 F 11/15/18 06:00 Pulse Rate 73 11/15/18 06:00 Respiratory Rate 18 11/15/18 06:00 Blood Pressure 128/62 11/15/18 06:00 O2 Sat by Pulse Oximetry (%) 99 11/14/18 16:20 Breast Exam: Yes: Soft Uterus: Yes: Fundus Firm Incision: Yes: Dressing dry and intact Abdomen/GI: Yes: Abdomen soft, Abdominal Distention, Tolerating PO Lochia: Yes: Rubra Lochia, amount: Small Extremities: Yes: Calves non-tender Perineum: Yes: Intact Activity: Ambulating - Labs Labs: CBC WBC 9.2 K/mm3 (4.0-10.0) 11/15/18 05:50 RBC 4.23 M/mm3 (3.60-5.2) 11/15/18 05:50 Hgb 12.0 GM/dL (10.7-15.3) 11/15/18 05:50 Hct 35.6 % (32.4-45.2) 11/15/18 05:50 MCV 84.2 fl (80-96) 11/15/18 05:50 MCH 28.3 pg (25.7-33.7) 11/15/18 05:50 MCHC 33.7 g/dl (32.0-36.0) 11/15/18 05:50 RDW 14.2 % (11.6-15.6) 11/15/18 05:50 Plt Count 194 K/MM3 (134-434) 11/15/18 05:50 MPV 8.0 fl (7.5-11.1) 11/15/18 05:50 Absolute Neuts (auto) 7.0 K/mm3 (1.5-8.0) 11/15/18 05:50 Neutrophils % 76.1 % (42.8-82.8) D 11/15/18 05:50 Lymphocytes % 11.1 % (8-40) D 11/15/18 05:50 Monocytes % 12.5 % (3.8-10.2) H 11/15/18 05:50 Eosinophils % 0.1 % (0-4.5) D 11/15/18 05:50 Basophils % 0.2 % (0-2.0) 11/15/18 05:50 Nucleated RBC % 0 % (0-0) 11/15/18 05:50 Assessment/Plan 33yo P2 now s/p Repeat c/section VSS, Afebrile Abdominal distention Change to clears Encourage ambulation Rectal suppository Male infant circumcised RH pos no need for Rhogam cont. routine care
[2018-11-15] MEDS: BISACODYL 10 MG SUPP.RECT RC PRN (14:05)
[2018-11-15] MEDS: SIMETHICONE 80 MG TAB.CHEW (FP) PO PRN (14:05)
[2018-11-15] MEDS: PRENATAL VITAMINS W/ FOLIC ACID TABLET (FP) PO SCH (17:59)
[2018-11-15] MEDS: IBUPROFEN 600 MG TABLET (FP) PO PRN (18:41)
[2018-11-16] MEDS: IBUPROFEN 600 MG TABLET (FP) PO PRN ×5 (00:36→22:04)
[2018-11-16] MEDS: ACETAMINOPHEN 325 MG TABLET (FP) PO PRN ×5 (00:37→22:04)
[2018-11-16] MEDS: GABAPENTIN 300 MG CAPSULE (FP) PO SCH ×3 (06:18→22:05)
--- NOTE | 2018-11-16 07:08 | PN ---
Post Progress Note - Subjective Subjective: Patient without acute complaints. Reports tolerating oral intake without nausea or vomiting. Ambulating without dizziness. Denies fevers or chills. Pain well controlled with oral pain medication. without difficulty. Passing flatus. Post Day: 2 Type of Delivery: Repeat C/S Vital Signs: Vital Signs Temperature 98.8 F 11/15/18 22:00 Pulse Rate 75 11/15/18 22:00 Respiratory Rate 20 11/15/18 22:00 Blood Pressure 128/73 11/15/18 22:00 O2 Sat by Pulse Oximetry (%) 99 11/14/18 16:20 Breast Exam: Yes: Soft Uterus: Yes: Fundus Firm, Fundus @ umbilicus Incision: Yes: Sutures intact. No: Redness, Oozing Abdomen/GI: Yes: Abdomen soft, Abdominal Distention (mild soft), Tender ( incisional), Passing flatus, Tolerating PO Lochia: Yes: Serosa Lochia, amount: Moderate Extremities: Yes: Calves non-tender, Edema (trace) Activity: Ambulating - Labs Labs: CBC WBC 9.2 K/mm3 (4.0-10.0) 11/15/18 05:50 RBC 4.23 M/mm3 (3.60-5.2) 11/15/18 05:50 Hgb 12.0 GM/dL (10.7-15.3) 11/15/18 05:50 Hct 35.6 % (32.4-45.2) 11/15/18 05:50 MCV 84.2 fl (80-96) 11/15/18 05:50 MCH 28.3 pg (25.7-33.7) 11/15/18 05:50 MCHC 33.7 g/dl (32.0-36.0) 11/15/18 05:50 RDW 14.2 % (11.6-15.6) 11/15/18 05:50 Plt Count 194 K/MM3 (134-434) 11/15/18 05:50 MPV 8.0 fl (7.5-11.1) 11/15/18 05:50 Absolute Neuts (auto) 7.0 K/mm3 (1.5-8.0) 11/15/18 05:50 Neutrophils % 76.1 % (42.8-82.8) D 11/15/18 05:50 Lymphocytes % 11.1 % (8-40) D 11/15/18 05:50 Monocytes % 12.5 % (3.8-10.2) H 11/15/18 05:50 Eosinophils % 0.1 % (0-4.5) D 11/15/18 05:50 Basophils % 0.2 % (0-2.0) 11/15/18 05:50 Nucleated RBC % 0 % (0-0) 11/15/18 05:50 Assessment/Plan 33 yo POD # 2 s/p CD, afebrile, vital signs stable, doing well 1. Continue routine postoperative care. 2. Encourage ambulation and incentive spirometer use 3. Fibromyalgia - continue neurontin, tylenol, motrin 4. Anticipate discharge home postoperative day #3 or #4
[2018-11-16] MEDS: PRENATAL VITAMINS W/ FOLIC ACID TABLET (FP) PO SCH (09:25)
[2018-11-16] MEDS: SERTRALINE HCL 25 MG TABLET (FP) PO SCH (09:25)
[2018-11-16] MEDS: ENOXAPARIN NA (PORCINE) 40 MG/0.4 ML DISP.SYRIN SQ SCH (09:27)
[2018-11-16] MEDS: SIMETHICONE 80 MG TAB.CHEW (FP) PO PRN ×2 (11:27→15:39)
[2018-11-16] MEDS ORDERED: SENNOSIDES/DOCUSATE COMBO (SENNA PLUS) TABLET (UD) PO PRN (22:00)
[2018-11-17] MEDS: ACETAMINOPHEN 325 MG TABLET (FP) PO PRN (06:06)
[2018-11-17] MEDS: IBUPROFEN 600 MG TABLET (FP) PO PRN (06:06)
[2018-11-17] MEDS: BISACODYL 10 MG SUPP.RECT RC PRN (06:12)
[2018-11-17] MEDS: GABAPENTIN 300 MG CAPSULE (FP) PO SCH ×2 (06:13→14:50)
--- NOTE | 2018-11-17 07:35 | PN ---
Progress Note (short form) - Note Progress Note: pod 3 s/p repeat c/s doing well, passing gas, but c/o gas pain, wants to go home today Last Vital Signs Temp Pulse Resp BP Pulse Ox 98.2 F 67 20 130/80 99 11/16/18 22:00 11/16/18 22:00 11/16/18 22:00 11/16/18 22:00 11/14/18 16:20 abdomen soft, no distension , no cva incision dry, clean no calf tenderness lochia mild plan ambulate , cbc today if ok d/c home with instruction , follow uo office 1 week
[2018-11-17 07:50] LABS: BASO % 0.5 % (0-2.0); EOS % 2.4 % (0-4.5); HEMATOCRIT 34.2 % (32.4-45.2); HEMOGLOBIN 11.5 GM/dL (10.7-15.3); LYMPH % 20.8 % (8-40); MCH 28.5 pg (25.7-33.7); MCHC 33.8 g/dl (32.0-36.0); MEAN CELL VOLUME 84.3 fl (80-96); MONO % 11.4 % (3.8-10.2); NEUT % 64.9 % (42.8-82.8); PLATELET COUNT 219 K/MM3 (134-434); RBC 4.05 M/mm3 (3.60-5.2); RDW 14.3 % (11.6-15.6); WHITE BLOOD COUNT 8.5 K/mm3 (4.0-10.0)
[2018-11-17 09:51] VITALS: BP 130/76; PULSE 68; TEMP 98.7
[2018-11-17] MEDS: ENOXAPARIN NA (PORCINE) 40 MG/0.4 ML DISP.SYRIN SQ SCH (10:33)
[2018-11-17] MEDS: SERTRALINE HCL 25 MG TABLET (FP) PO SCH (10:33)
[2018-11-17] MEDS: PRENATAL VITAMINS W/ FOLIC ACID TABLET (FP) PO SCH (10:33)
--- NOTE | 2018-11-24 20:36 | PATH ---
Surgical Pathology Report Patient Name: SUKH PERRY [facility]. Rec. 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 Specimen(s) Received PLACENTA Clinical History 39 weeks and 2 days Previous , term Final Diagnosis PLACENTA, SECTION: 455 G THIRD TRIMESTER PLACENTA WITH TRIVASCULAR UMBILICAL CORD AND UNREMARKABLE PLACENTAL MEMBRANES. Electronically Signed Cleopatra Dodd M.D. Gross Description The specimen is received fresh labeled placenta and is a 455 gram, 16.5 x 13.0 x 2.7 cm. placenta with attached membranes and umbilical cord. The attached membranes are arthur, translucent with focal opacities and insert marginally. The umbilical cord measures 3.5 cm. in length and averages 1.3 cm. in diameter. The cord inserts eccentrically, 1 cm. to the nearest margin. No true knots or strictures are identified. Cut surface of the umbilical cord reveals 3 vessels. The surface is car-blue with minimal fibrin deposition and appropriate caliber vessels. The maternal surface is red-brown with focal defects. Sectioning reveals red-brown, spongy parenchyma. No lesions are identified. [employer] sections are submitted in three cassettes as follows: 1- membrane rolls and umbilical cord; 2-3- full thickness sections of placenta. 11/23/2018 [facility]
== END 2018-11-17 14:40 | disposition home or self-care (01) | DRG 982 ==
LOC: JLDR 09:03 → J3W 16:39
PROVIDERS: ADMIT Obstetrics & Gynecology; ATTEND Obstetrics & Gynecology
PROC: 10D00Z1 Extraction of Products of Conception, Low, Open Approach (ICD-10-PCS; principal; 2018-11-14)
DX: K80.40 Calculus of bile duct with cholecystitis, unspecified, without obstruction (principal); F33.9 Major depressive disorder, recurrent, unspecified; O99.344 Other mental disorders complicating childbirth; M06.9 Rheumatoid arthritis, unspecified; O99.62 Diseases of the digestive system complicating childbirth; O75.89 Other specified complications of labor and delivery; M79.7 Fibromyalgia; Z37.0 Single live birth; Z3A.39 39 weeks gestation of pregnancy
CPT/HCPCS: 36415; 82803; 85025; 88307-TC; 94010; J0131